=== PATIENT | female | born 1985 | race Caucasian/White ===

== ENCOUNTER 2016-10-25 14:35 | Emergency (ER) | payer SELFPAY ==
--- NOTE | 2016-10-25 15:32 | ER PHYSICIAN DOCUMENTATION ---
Physician Documentation Name:Rand Jones Age:31 yrs Sex:Female :1985 Arrival Date:10/25/2016 Time:14:35 BedTrauma B Private MD: Manish Taylor Disposition: 10/25 15:34 Critical Care: not applicable. sc Disposition: 10/25/16 15:16 Discharged to Home/Self Care. Impression: Pleurisy. - Condition is Good. - Discharge Instructions: PLEURISY. - Medical Reconciliation form form. - Follow up: Emergency Department; When: As needed; Reason: Worsening of condition. - Problem is an ongoing problem. - Symptoms are unchanged. HPI: 15:26 This 31 yrs old Female presents to ER via Private Vehicle with complaints of sc Breathing Difficulty. 15:26 The patient has shortness of breath with light activity. Onset: The symptom(s)/episode sc began/occurred 9 day(s) ago. Duration: The symptoms are continuous, but are steadily getting better. Associated signs and symptoms: Pertinent positives: This patient does not have any pertinent positive signs or symptoms associated with shortness of breath. Severity of symptoms: At their worst the symptoms were mild. The patient has experienced a previous episode, extensive workup in [place] 9 days ago for pe vs cardiac vs other and dxd with pleurisy, improving but not as much as expected since arrival in [place]. No new pain or symptoms. Historical: - Allergies: Amoxicillin; - Home Meds: 1. naproxen for past 9 days - PMHx: pleuracy; pre-diabetes, controlled with diet; - PSHx: ; - Tetanus: < 10 years. - Ebola Screening: : Patient negative for fever greater than or equal to 101.5 degrees Fahrenheit, and additional compatible Ebola Virus Disease symptoms. Patient denies exposure to infectious person. Patient denies travel to an Ebola-affected area in the 21 days before illness onset. No symptoms or risks identified at this time. . - Immunization history: Flu Vaccine >1 year. - Social history: Smoking status: Patient states was never smoker of tobacco. ROS: 15:32 Constitutional: Negative for fever, chills, and weight loss. sc Eyes: Negative for injury, pain, redness, and discharge. Neck: Negative for injury, pain, and swelling. Cardiovascular: Negative for chest pain, palpitations, and edema. Back: Negative for injury and pain. MS/Extremity: Negative for injury and deformity. Skin: Negative for injury, rash, and discoloration. 15:32 Neuro: Negative for headache, weakness, numbness, tingling, and seizure. sc 15:32 Respiratory: Positive for shortness of breath. Exam: Constitutional: This is a well developed, well nourished patient who is awake, alert, and in no acute distress. Head/Face: Normocephalic, atraumatic. Eyes: Pupils equal round and reactive to light, extra-ocular motions intact. Lids and lashes normal. Conjunctiva and sclera are non-icteric and not injected. Cornea within normal limits. Periorbital areas with no swelling, redness, or edema. Chest/axilla: Normal chest wall appearance and motion. Nontender with no deformity. No lesions are appreciated. Abdomen/GI: Soft, non-tender, with normal bowel sounds. No distension or tympany. No guarding or rebound. No evidence of tenderness throughout. Back: No spinal tenderness. No costovertebral tenderness. Full range of motion. Skin: Warm, dry with normal turgor. Normal color with no rashes, no lesions, and no evidence of cellulitis. MS/ Extremity: Pulses equal, no cyanosis. Neurovascular intact. Full, normal range of motion, negative Homans's, calves equal bilaterally. 15:32 Neuro: Awake and alert, GCS 15, oriented to person, place, time, and situation. nv Cranial nerves II-XII grossly intact. Motor strength 5/5 in all extremities. Sensory grossly intact. Cerebellar exam normal. Normal gait. 15:32 Cardiovascular: Exam negative for acute changes, Rate: normal, Rhythm: regular. 15:32 Respiratory: mild respiratory distress is noted, Respirations: normal, Breath sounds: are normal, clear throughout. Vital Signs: 14:51 BP 150 / 101; Pulse 102; Resp 20; Temp 98.3(TE); Pulse Ox 97% on R/A; Weight 104.33 kg tg (R); Height 5 ft. 8 in. (172.72 cm) (R); Pain 4/10; 15:30 Pulse 96; Resp 18; Pulse Ox 96% on R/A; tg 14:51 Body Mass Index 34.97 (104.33 kg, 172.72 cm) tg MDM: 14:44 Patient medically screened. sc 15:34 Antibiotic administration: Not indicated. Data reviewed: vital signs, nurses notes, and sc as a result, I will continue to observe the patient. Data interpreted: Pulse oximetry: on room air is 97 %. Counseling: I had a detailed discussion with the patient and/or guardian regarding: the historical points, exam findings, and any diagnostic results supporting the discharge/admit diagnosis, to return to the emergency department if symptoms worsen or persist or if there are any questions or concerns that arise at home. Dispensed Medications: No medications were administered Signatures: Killian Light RN RN tg Manish Johnson MD MD nv
--- NOTE | 2016-10-25 15:32 | ER NURSING DOCUMENTATION ---
Nurse's Notes [facility] Name:Rand Jones Age:31 yrs Sex:Female :1985 Arrival Date:10/25/2016 Time:14:35 BedTrauma B Private MD: Diagnosis:Pleurisy Presentation: 10/25 14:50 Presenting complaint: Patient states: Chest pain. Dx with pleuracy at ED in [place] 9 days tg ago. Was getting better with naproxen, but pain is not getting wrose. Transition of care: patient was not received from another setting of care. 14:50 Acuity: ROSALIE 3 tg 14:50 Method Of Arrival: Private Vehicle tg Triage Assessment: 14:30 General: Appears in no apparent distress, Behavior is anxious, cooperative. Pain: tg Complains of pain in chest. Cardiovascular: Capillary refill < 3 seconds. Respiratory: Respiratory effort is even, unlabored, Reports pain with respiration Onset: The symptoms/episode began/occurred 9 days ago. GI:. Derm: Skin is pink, warm & dry. Historical: - Allergies: Amoxicillin; - Home Meds: 1. naproxen for past 9 days - PMHx: pleuracy; pre-diabetes, controlled with diet; - PSHx: ; - Tetanus: < 10 years. - Ebola Screening: : Patient negative for fever greater than or equal to 101.5 degrees Fahrenheit, and additional compatible Ebola Virus Disease symptoms. Patient denies exposure to infectious person. Patient denies travel to an Ebola-affected area in the 21 days before illness onset. No symptoms or risks identified at this time. . - Immunization history: Flu Vaccine >1 year. - Social history: Smoking status: Patient states was never smoker of tobacco. Screenin:56 Infectious Disease Risk Unable to Obtain. Abuse screen: Denies threats or abuse. Denies tg injuries from another. Nutritional screening: No deficits noted. Vital Signs: 14:51 BP 150 / 101; Pulse 102; Resp 20; Temp 98.3(TE); Pulse Ox 97% on R/A; Weight 104.33 kg tg (R); Height 5 ft. 8 in. (172.72 cm) (R); Pain 4/10; 15:30 Pulse 96; Resp 18; Pulse Ox 96% on R/A; tg 14:51 Body Mass Index 34.97 (104.33 kg, 172.72 cm) tg ED Course: 14:37 Patient arrived in ED. ama 14:44 Manish Johnson MD is Attending Physician. sd 14:51 Triage completed. tg 14:56 Killian Light RN is Primary Nurse. tg 14:56 Valuables Remains with patient. tg Administered Medications: No medications were administered Outcome: 15:16 Discharge ordered by . sd 15:30 Discharged to home ambulatory, with family. tg 15:30 Condition: stable 15:30 Discharge Assessment: Patient awake, alert and oriented x 3. No cognitive and/or functional deficits noted. Patient verbalized understanding of disposition instructions. 15:30 Instructed on discharge instructions, follow up and referral plans. 15:31 Patient left the ED. tg Signatures: Killian Light RN RN tg Manish Johnson MD MD sc Averdick, Andrew, Reg Reg ama
== END 2016-10-25 15:32 | disposition home or self-care (01) ==
LOC: ER 14:35
DX: R09.1 Pleurisy (principal); R06.02 Shortness of breath
CPT/HCPCS: 99281